=== PATIENT | male | born 1995 | race Caucasian/White ===

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

== ENCOUNTER 2017-09-30 22:24 | Observation (INO) ==
--- NOTE | 2017-09-30 22:57 | ERNOTE ---
Medical Problem HPI - Narrative Date of Service: 09/30/17 - transfer from [facility] for OD - General Chief Complaint: Drug Overdose Time Seen by Provider: 09/30/17 22:53 Source: patient Exam Limitations: no limitations - Immun/Allergies/Home Medications Immunizations: IMMUNIZATION HX Immunizations Up to Date Yes Allergies/Adverse Reactions: Allergies No Known Allergies Allergy (Verified 09/30/17 22:31) Home Medications: HOME MEDICATIONS Carisoprodol [Soma] 350 mg PO DAILY 09/30/17 [Last Taken Unknown] Meloxicam [Mobic] 15 mg PO DAILY 09/30/17 [Last Taken Unknown] Clonidine HCl [Catapres] 0.1 mg PO TID PRN #90 tab 10/01/17 [Last Taken Unknown] Naltrexone HCl [ReVia] 50 mg PO DAILY #30 tab 10/01/17 [Last Taken Unknown] Sertraline HCl [Zoloft] 50 mg PO DAILY #30 tab 10/01/17 [Last Taken Unknown] loperamide 2 mg capsule 2 mg PO QID PRN #120 cap 10/01/17 [Last Taken Unknown] - History of Present History Narrative: patient was transfer from [facility] for lack of beds,patient took OD of multiple medications, 9 Soma meloxicam benadrylopiate oxycontin and vicdin,had elevated random tylenol level ,in ED here a/o no distress denies wanted to hurt self but rather to get away from things. Date (Duration): 09/30/17 Time (Timing): 23:34 Severity: moderate Review of Systems - Review of Systems Constitutional: Present: no symptoms reported EYE: Present: no symptoms reported ENT: Present: no symptoms reported Respiratory: Present: no symptoms reported Cardiology: Present: no symptoms reported Gastrointestinal/Abdominal: Present: no symptoms reported Genitourinary: Present: no symptoms reported Neurological: Present: no symptoms reported All Other Systems: All systems neg except as marked Medical History (Last Updated 10/01/17 @ 01:46 by Ana Graf RN) ADHD Ankle fracture Arthritis of back Degenerative disk disease Depression Kidney stone Scoliosis bipolar Surgical History: Surgical History (Last Updated 09/30/17 @ 22:34 by Manasa Thao RN) History of lithotripsy Family History: Family History (Last Updated 10/01/17 @ 01:42 by Ana Graf RN) Mother Anxiety Depression Bipolar 1 disorder Social History: Preferred Language Maltese Smoking Status Current every day smoker Abuse History No History of abuse Psych History Hx of Anxiety,Hx of Depression Alcohol Use rarely Drug Use benzodiazepine,other Physical Exam - Physical Exam General Appearance: Present: wd/wn, alert, no apparent distress Head Exam: Present: normal inspection, no evidence of injury Eye Exam: Normal inspection: bilateral Ears, Nose, Throat: Present: normal ENT inspection Neck: Present: normal inspection Respiratory: Present: no respiratory distress Cardiovascular/Chest: Present: regular rate, rhythm Gastrointestinal/Abdominal: Present: normal bowel sounds, nontender, nondistended Rectal Exam: Present: nontender, normal rectal tone Back Exam: Present: normal inspection Extremity Exam: Present: normal inspection Neurological Exam: Present: alert, oriented, normal mood/affect Skin Exam: Present: normal color Lymphatic Exam: Present: no adenopathy ED Progress - Results and Orders Patient's Lab Results:: I have reviewed the patient's lab results. - Vital Signs Patient's Vital Signs:: I have reviewed the patient's vital signs. Vital Signs: Vital Signs 09/30/17 22:27 Temperature 37.0 C Pulse Rate 85 Respiratory Rate 17 Blood Pressure 119/73 O2 Sat by Pulse Oximetry 99 - Progress/Reassessment Chief Complaint: Drug Overdose Plan - Plan Plan: patient to be admitted to ICU Departure Clinical Impression: Overdose Qualifiers: Encounter type: initial encounter Injury intent: accidental or unintentional Qualified Code(s): T50.901A - Poisoning by unspecified drugs, medicaments and biological substances, accidental (unintentional), initial encounter - Departure Disposition: Still a patient Condition: Good
[2017-09-30 23:08] LABS: Hematocrit 38.1 % (42.0-52.0); Hemoglobin 12.7 gm/dL (13.5-18.0); Mean Cell Volume 90.7 fl (78-100); Mean Corpuscular Hemoglobin 30.2 pg (27-31); Mean Corpuscular Hgb Conc 33.3 g/dl (32-36); Mean Platelet Volume 9.5 fl (8-11.3); Neutrophil # 4.5 K/mm3 (1.3-6.0); Neutrophil % 54.8 % (42-75.0); Platelet Count 221 K/mm3 (150-450); Red Cell Distribution Width 12.3 % (11.5-14.0); White Blood Count 8.3 K/mm3 (4.0-10.5)
[2017-09-30 23:27] LABS: ALT 17 U/L (19-67); AST 18 U/L (0-48); Acetaminophen * 5.6 mcg/mL (10.0-30.0); Albumin * 3.6 gm/dl (3.4-5.0); Alkaline Phosphatase * 88 U/L (50-170); Anion Gap 11.7 mmol/L (6.8-13.8); Bilirubin, Total 0.3 mg/dL (0.0-1.1); Blood Urea Nitrogen 8 mg/dL (6-23); Ca. Corrected For Albumin 8.2 mg/dL (8.4-10.2); Calcium * 8.2 mg/dL (7.9-10.9); Carbon Dioxide 29.8 mmol/L (24-32.6); Chloride 107 mmol/L (97-106); Glucose * 112 mg/dL (70-110); Potassium 3.5 mmol/L (3.4-4.6); Salicylate Less than 2.8 mg/dL (2.8-20.0); Sodium 145 mmol/L (132-142); Total Protein 6.3 gm/dL (6.2-8.2); Troponin I Less than 0.017 ng/ml (0.00-0.10)
[2017-10-01 00:05] LABS: Urine Bilirubin Negative (NEGATIVE); Urine Blood 50 /ul (NEGATIVE); Urine Ketone Negative (NEGATIVE); Urine Nitrite Negative (NEGATIVE); Urine Protein Negative (NEGATIVE); Urine Specific Gravity 1.025 SP.GR. (1.005-1.030); Urine Urobilinogen Normal (NORMAL); Urine pH 6.5 pH (5.0-7.0)
[2017-10-01 00:11] LABS: Urine Appearance Clear (CLEAR); Urine Bacteria TRACE; Urine Color Yellow; Urine WBC 0-5 /hpf (0-5)
[2017-10-01 00:21] LABS: Cocaine Ur Negative (NEGATIVE); Urine Barbiturate Negative (NEGATIVE); Urine Benzodiazepines Negative (NEGATIVE); Urine PCP Negative (NEGATIVE); Urine THC Negative (NEGATIVE)
[2017-10-01 00:22] LABS: Urine Opiates Positive (NEGATIVE)
--- NOTE | 2017-10-01 01:52 | HP ---
Chief Complaint - Chief Complaint Date of Service: 10/01/17 Time of Service: 01:00 Chief Complaint: Overdose History of Present Illness: 22 years old male adm to the [facility] with reports of overdose on multiple prescription medications.He is a transfer from [facility] to [facility] ER. Per patient he was doing good for 1-2 days without using prescription medication to numb his sad feelings. Pt stated " I no longer uses vicodin for back pain, but i use it to feel ok. Today I took soma meloxicam and when I didn't feel any better I took another and another. july i took a total of maybe 9 pills. I had taken the vicodin earlier, but I have also taken Benadryl and oxycontin at different times. The soma is prescribed to me but the vicodin and oxycontin not.I have been trying on my own to quit because I know I have a problem and want some help.Whenever I stop using its feels like my body is about to fall apart, so I take the pills again". I wasn't trying to kill myself or get high, I just wanted to get away from how im feeling, maybe relax". Per aunt "later in the day, pt was picked up by a police academy instructor and brought him to his grandmother house. He was very lethargic so she took him to the ER in [place]. His issues began when he fractures his ankle and was prescribed vicodin. At 16 years old he was committed for lorazepam abuse". pt stated "he was prescribed 1 pill daily. However he was instructed by his psychiatrist to take an additional pill if his symptoms didn't improve. This continues to where he was taking lorazepam 4time or more during the day. The psychiatrist found out, he was sent to rehab in [place]. PMH significant for several accidental fractures, back pain, arthritis, kidney stones, anxiety, depression and chronic back pain. In ER salicylates < 2.8, Acetaminophen 5.6 and + opiates. EKG- NSR, pt is medically stable and appropriate to be on the med-surg. Plan of care discussed with pt and family, they verbalized understanding and agrees. Medical History (Last Updated 10/01/17 @ 01:46 by Ana Graf RN) Ankle fracture Arthritis of back Degenerative disk disease Scoliosis ADHD Depression Kidney stone bipolar Surgical History: Surgical History (Last Updated 09/30/17 @ 22:34 by Manasa Thao RN) History of lithotripsy Family History: Family History (Last Updated 10/01/17 @ 01:42 by Ana Graf RN) Mother Anxiety Depression Bipolar 1 disorder Social History: Patient Lives/Resources Home Utilized Preferred Language Yakut Do you have any gnosticism or No cultural preference? Smoking Status Current every day smoker Have you smoked in the past 12 Yes months Abuse History No History of abuse Psych History Hx of Anxiety,Hx of Depression Alcohol Use rarely Drug Use benzodiazepine,other Review Of Systems (GEN) - Review of Systems Generalized/Overall Review: Present: No Symptoms Reported EENTM: Present: No Symptoms Reported Respiratory: Present: No Symptoms Reported Cardiac: Present: No Symptoms Reported Abdominal: Present: No Symptoms Reported Genitourinary: Present: No Symptoms Reported Musculoskeletal: Present: No Symptoms Reported Neurological: Present: No Symptoms Reported Skin: Present: No Symptoms Reported Endocrine: Present: No Symptoms Reported Immunizations: IMMUNIZATION HX Immunizations Up to Date Yes Allergies/Adverse Reactions: Allergies Allergy/AdvReac Type Severity Reaction Status Date / Time No Known Allergies Allergy Verified 09/30/17 22:31 Home Medications: HOME MEDICATIONS Carisoprodol [Soma] 350 mg PO DAILY 09/30/17 [Last Taken Unknown] Meloxicam [Mobic] 15 mg PO DAILY 09/30/17 [Last Taken Unknown] Exam - Exam Vital Signs: Vital Signs - Last Taken Temp 36.9 C 10/01/17 01:17 Pulse 94 10/01/17 01:17 Resp 16 10/01/17 01:17 BP 134/74 10/01/17 01:17 Pulse Ox 98 10/01/17 01:17 Constitutional: Present: Alert, Oriented x3, Cooperative, No distress ENT Exam: Present: hearing grossly normal Eye Exam: bilateral eye: normal inspection Neck: Present: non-tender, full range of motion Back Exam: Present: normal inspection Breasts: Present: Exam deferred Respiratory: Present: chest non-tender, lungs clear, normal breath sounds, no respiratory distress Cardiovascular/Chest: Present: normal peripheral pulses, regular rate, rhythm, no chest tenderness, no edema Peripheral Pulses: dorsalis-pedis (R): 3+, dorsalis-pedis (L): 3+ Abdomen: Present: Normal bowel sounds, soft, nontender, nondistended, no rebound tenderness /Rectal: Present: Exam deferred Extremity: Present: normal range of motion, non-tender, normal inspection, no pedal edema Skin Exam: Present: normal color, warm/dry Neurologic: Present: normal mood/affect, oriented x 3 Appearance: Present: appropriate appearance, appropriate insight Eye contact: Present: cooperative, good eye contact Thoughts: Present: normal thought pattern, no apparent hallucination Diagnostic Studies: Abnormal Lab Results 09/30/17 09/30/17 09/30/17 Range/Units 23:07 23:07 23:59 RBC 4.20 L (4.7-6.0) M/mm3 Hgb 12.7 L (13.5-18.0) gm/dL Hct 38.1 L (42.0-52.0) % Eosinophils % 3.3 H (0.0-3.0) % Sodium 145 H (132-142) mmol/L Plasma Sodium 145 H (130-142) mmol/L Chloride 107 H (97-106) mmol/L Random Glucose 112 H (70-110) mg/dL Calcium Adj for Albumin 8.2 L (8.4-10.2) mg/dL ALT 17 L (19-67) U/L Urine Blood 50 H (NEGATIVE) /ul Urine RBC 10-25 H (0-5) /hpf Salicylates Less than 2.8 L (2.8-20.0) mg/dL Urine Opiates Screen (NEGATIVE) Acetaminophen 5.6 L (10.0-30.0) mcg/mL 09/30/17 Range/Units 23:59 RBC (4.7-6.0) M/mm3 Hgb (13.5-18.0) gm/dL Hct (42.0-52.0) % Eosinophils % (0.0-3.0) % Sodium (132-142) mmol/L Plasma Sodium (130-142) mmol/L Chloride (97-106) mmol/L Random Glucose (70-110) mg/dL Calcium Adj for Albumin (8.4-10.2) mg/dL ALT (19-67) U/L Urine Blood (NEGATIVE) /ul Urine RBC (0-5) /hpf Salicylates (2.8-20.0) mg/dL Urine Opiates Screen Positive H (NEGATIVE) Acetaminophen (10.0-30.0) mcg/mL Laboratory Results WBC 8.3 K/mm3 (4.0-10.5) 09/30/17 23:07 RBC 4.20 M/mm3 (4.7-6.0) L 09/30/17 23:07 Hgb 12.7 gm/dL (13.5-18.0) L 09/30/17 23:07 Hct 38.1 % (42.0-52.0) L 09/30/17 23:07 MCV 90.7 fl (78-100) 09/30/17 23:07 MCH 30.2 pg (27-31) 09/30/17 23:07 MCHC 33.3 g/dl (32-36) 09/30/17 23:07 RDW 12.3 % (11.5-14.0) 09/30/17 23:07 Plt Count 221 K/mm3 (150-450) 09/30/17 23:07 MPV 9.5 fl (8-11.3) 09/30/17 23:07 Immature Gran % (Auto) 0.20 % (0.001-0.429) 09/30/17 23:07 Immature Gran # (Auto) 0.02 K/mm3 (0.000-0.0310) 09/30/17 23:07 Neutrophils % 54.8 % (42-75.0) 09/30/17 23:07 Lymphocytes % 34.5 % (20-51) 09/30/17 23:07 Monocytes % 6.8 % (0.0-9) 09/30/17 23:07 Eosinophils % 3.3 % (0.0-3.0) H 09/30/17 23:07 Basophils % 0.4 % (0.0-1.0) 09/30/17 23:07 Nucleated RBC % 0.0 k/mm3 (0-1) 09/30/17 23:07 Neutrophils # 4.5 K/mm3 (1.3-6.0) 09/30/17 23:07 Lymphocytes # 2.86 k/mm3 (1.5-3.5) 09/30/17 23:07 Monocytes # 0.6 k/mm3 (0.0-1.0) 09/30/17 23:07 Eosinophils # 0.3 k/mm3 (0.0-0.7) 09/30/17 23:07 Absolute Basophils 0.0 k/mm3 (0.0-0.1) 09/30/17 23:07 Sodium 145 mmol/L (132-142) H 09/30/17 23:07 Plasma Sodium 145 mmol/L (130-142) H 09/30/17 23:07 Potassium 3.5 mmol/L (3.4-4.6) 09/30/17 23:07 Chloride 107 mmol/L (97-106) H 09/30/17 23:07 Carbon Dioxide 29.8 mmol/L (24-32.6) 09/30/17 23:07 Anion Gap 11.7 mmol/L (6.8-13.8) 09/30/17 23:07 BUN 8 mg/dL (6-23) 09/30/17 23:07 Creatinine 0.89 mg/dL (0.4-1.4) 09/30/17 23:07 Est GFR (Non-Af Amer) 116 mL/min (60-130) D 09/30/17 23:07 BUN/Creatinine Ratio 9.0 (9.0-21.6) 09/30/17 23:07 Random Glucose 112 mg/dL (70-110) H 09/30/17 23:07 Calcium 8.2 mg/dL (7.9-10.9) 09/30/17 23:07 Calcium Adj for Albumin 8.2 mg/dL (8.4-10.2) L 09/30/17 23:07 Total Bilirubin 0.3 mg/dL (0.0-1.1) 09/30/17 23:07 AST 18 U/L (0-48) 09/30/17 23:07 ALT 17 U/L (19-67) L 09/30/17 23:07 Alkaline Phosphatase 88 U/L (50-170) 09/30/17 23:07 Troponin I Less than 0.017 ng/ml (0.00-0.10) 09/30/17 23:07 Total Protein 6.3 gm/dL (6.2-8.2) 09/30/17 23:07 Albumin 3.6 gm/dl (3.4-5.0) 09/30/17 23:07 Urine Color Yellow 09/30/17 23:59 Urine Appearance Clear (CLEAR) 09/30/17 23:59 Urine pH 6.5 pH (5.0-7.0) 07 23:59 Ur Specific [place] 1.025 SP.GR. (1.005-1.030) 09/30/17 23:59 Urine Protein Negative mg/dL (NEGATIVE) 09/30/17 23:59 Urine Glucose (UA) Negative mg/dL (NEGATIVE) 09/30/17 23:59 Urine Ketones Negative mg/dL (NEGATIVE) 09/30/17 23:59 Urine Blood 50 /ul (NEGATIVE) H 09/30/17 23:59 Urine Nitrate Negative (NEGATIVE) 09/30/17 23:59 Urine Bilirubin Negative mg/dl (NEGATIVE) 09/30/17 23:59 Urine Urobilinogen Normal EU/dl (NORMAL) 09/30/17 23:59 Ur Leukocyte Esterase Negative /ul (NEGATIVE) 09/30/17 23:59 Urine RBC 10-25 /hpf (0-5) H 09/30/17 23:59 Urine WBC 0-5 /hpf (0-5) 07 23:59 Ur Epithelial Cells None seen /hpf (0-5) 09/30/17 23:59 Urine Bacteria Trace (NONE) 09/30/17 23:59 Urine Culture Comments No culture indicated 09/30/17 23:59 Salicylates Less than 2.8 mg/dL (2.8-20.0) L 09/30/17 23:07 Urine Opiates Screen Positive (NEGATIVE) H 09/30/17 23:59 Acetaminophen 5.6 mcg/mL (10.0-30.0) L 09/30/17 23:07 Barbiturate Screen Negative (NEGATIVE) 09/30/17 23:59 Ur Phencyclidine Scrn Negative (NEGATIVE) 09/30/17 23:59 Urine Amphetamine Negative (NEGATIVE) 09/30/17 23:59 U Benzodiazepines Scrn Negative (NEGATIVE) 09/30/17 23:59 Urine Cocaine Screen Negative (NEGATIVE) 09/30/17 23:59 Urine Marijuana (THC) Negative (NEGATIVE) 09/30/17 23:59 Assessment/Plan - Assessment/Plan (1) Overdose Assessment: In ER salicylates < 2.8, Acetaminophen 5.6 and + opiates. EKG- NSR Telemetry seizure precaution. Consult Vielka Doherty for psy eval and treatment Recommendation for Alcohol and drug dependency services monique Problem: Acute Qualifiers: Encounter type: initial encounter
--- NOTE | 2017-10-01 11:15 | CONS ---
[facility] - General Date of Service: 10/01/17 Source: patient, RN/MD, RN notes reviewed Exam Limitations: no limitations - History of Present Illness Timing/Duration: getting worse Severity: moderate Associated Symptoms: malaise, nausea Allergies/Adverse Reactions: Allergies No Known Allergies Allergy (Verified 09/30/17 22:31) Home Medications: Home Medications Medication Instructions Recorded Last Taken Carisoprodol [Soma] 350 mg PO DAILY 09/30/17 Unknown Meloxicam [Mobic] 15 mg PO DAILY 09/30/17 Unknown clonidine HCl 0.1 mg tablet 0.1 mg PO TID PRN #90 tab 10/01/17 Unknown loperamide 2 mg capsule 2 mg PO QID PRN #120 cap 10/01/17 Unknown naltrexone 50 mg tablet 50 mg PO DAILY #30 tab 10/01/17 Unknown sertraline 50 mg tablet 50 mg PO DAILY #30 tab 10/01/17 Unknown Procedures Application of splint (04/18/11) Open reduction of fracture with internal fixation, tibia and fibula (04/20/11) Review of Systems - Review of Systems Generalized/Overall Review: Present: Weakness, Chills, Malaise Abdominal: Present: Nausea, Diarrhea Neurological: Present: Anxiety, Depressed Physical Examination - Exam Narrative: Visit lasts approx. 20 minutes. Patient admits to using opiates recreationally several years ago. This use increased to daily. Has tried to stop using on his own but experiences withdrawal symptoms and intense cravings so uses to avoid feeling terrible from the withdrawal. States that he knows that his opiate use is a problem and voices a desire to stop using. States that mood is anxious and depressed. Is tried of being dependent on opiates. Took an overdose fo medications to stop withdrawal symptoms, denies that this was a suicide attempt. Discussed treatment available for opiate addiction. Discussed possibility of managing medication on an outpatient basis here vs. referral to a suboxone provider. Will start on Naltrexone, Clonidine, Loperamide and Sertraline. Discussed R/B/SE of medications. Written instructions provided. Number given for ADDS, strongly recommend substance abuse counseling. Case management will attempt to refer to a Suboxone provider in [facility]. Patient states that he has a good support system. Has follow up appointment scheduled for 10/23/17. Patient is cleared by psychiatry for discharge. Vital Signs: Vital Signs - Last Taken Temp 37.0 C 10/01/17 08:25 Pulse 54 L 10/01/17 08:25 Resp 16 10/01/17 08:25 BP 120/83 10/01/17 08:25 Pulse Ox 99 10/01/17 08:25 O2 Oxygen Delivery Method Room Air Constitutional: Present: Alert, Oriented x3, Cooperative Neurologic: Present: depressed affect Appearance: Present: appropriate appearance, appropriate insight Eye contact: Present: cooperative, good eye contact Thoughts: Present: normal thought pattern, no apparent hallucination - Results and Findings: Lab/Microbiology results last 24 hrs: Abnormal/Pending Laboratory Last 24 HRS 09/30/17 09/30/17 09/30/17 23:59 23:59 23:07 RBC Hgb Hct Eosinophils % Sodium 145 H Plasma Sodium 145 H Chloride 107 H Random Glucose 112 H Calcium Adj for Albumin 8.2 L ALT 17 L Urine Blood 50 H Urine RBC 10-25 H Salicylates Less than 2.8 L Urine Opiates Screen Positive H Acetaminophen 5.6 L 09/30/17 23:07 RBC 4.20 L Hgb 12.7 L Hct 38.1 L Eosinophils % 3.3 H Sodium Plasma Sodium Chloride Random Glucose Calcium Adj for Albumin ALT Urine Blood Urine RBC Salicylates Urine Opiates Screen Acetaminophen - Assessments/Findings (1) Overdose Problem: Acute Qualifiers: Encounter type: initial encounter Injury intent: accidental or unintentional Qualified Code(s): T50.901A - Poisoning by unspecified drugs, medicaments and biological substances, accidental (unintentional), initial encounter (2) Opiate addiction Problem: Acute Qualifiers: Complication of substance-induced condition: uncomplicated (3) Major depression Problem: Acute Qualifiers: Major depression episode severity: moderate Qualified Code(s): F33.1 - Major depressive disorder, recurrent, moderate
--- NOTE | 2017-10-01 11:45 | DS ---
(1) Major depression Problem: Chronic Qualifiers: Major depression recurrence: recurrent Active/Remission status: currently active Major depression episode severity: moderate Qualified Code(s): F33.1 - Major depressive disorder, recurrent, moderate (2) Opiate addiction Problem: Chronic Qualifiers: Complication of substance-induced condition: uncomplicated (3) Overdose Problem: Acute Qualifiers: Encounter type: initial encounter Injury intent: accidental or unintentional Qualified Code(s): T50.901A - Poisoning by unspecified drugs, medicaments and biological substances, accidental (unintentional), initial encounter Description of Stay: jo Koch, is a 22 years old male adm itted on 10/01/2017 with reports of overdose on multiple prescription medications.He was a transfer from [facility] to [facility] ER. Per patient he was doing good for 1-2 days without using prescription medication to numb his sad feelings. Pt stated " I no longer uses vicodin for back pain, but i use it to feel ok. Today I took soma meloxicam and when I didn't feel any better I took another and another. may i took a total of maybe 9 pills. I had taken the vicodin earlier, but I have also taken Benadryl and oxycontin at different times. The soma is prescribed to me but the vicodin and oxycontin not.I have been trying on my own to quit because I know I have a problem and want some help.Whenever I stop using its feels like my body is about to fall apart, so I take the pills again". I wasn't trying to kill myself or get high, I just wanted to get away from how im feeling, maybe relax". Per aunt "later in the day, pt was picked up by a police matron and brought him to his grandmother house. He was very lethargic so she took him to the ER in [place]. His issues began when he fractures his ankle and was prescribed vicodin. At 16 years old he was committed for lorazepam abuse". pt stated "he was prescribed 1 pill daily. However he was instructed by his psychiatrist to take an additional pill if his symptoms didn't improve. This continues to where he was taking lorazepam 4time or more during the day. The psychiatrist found out, he was sent to rehab in [place]. PMH significant for several accidental fractures, back pain, arthritis, kidney stones, anxiety, depression and chronic back pain. In ER salicylates < 2.8, Acetaminophen 5.6 and + opiates. EKG- NSR, pt was medically stable and was denying trying to kill himself and he was deemed appropriate to be on the med-surg instead of one on one in the [facility]. Vielka Benitez saw him and cleared him for discharge. Procedures Performed: none Results and Findings: Lab Pending Results 09/30/17 09/30/17 09/30/17 23:07 23:07 23:59 WBC 8.3 RBC 4.20 L Hgb 12.7 L Hct 38.1 L MCV 90.7 MCH 30.2 MCHC 33.3 RDW 12.3 Plt Count 221 MPV 9.5 Immature Gran % (Auto) 0.20 Immature Gran # (Auto) 0.02 Neutrophils % 54.8 Lymphocytes % 34.5 Monocytes % 6.8 Eosinophils % 3.3 H Basophils % 0.4 Nucleated RBC % 0.0 Neutrophils # 4.5 Lymphocytes # 2.86 Monocytes # 0.6 Eosinophils # 0.3 Absolute Basophils 0.0 Sodium 145 H Plasma Sodium 145 H Potassium 3.5 Chloride 107 H Carbon Dioxide 29.8 Anion Gap 11.7 BUN 8 Creatinine 0.89 Est GFR (Non-Af Amer) 116 D BUN/Creatinine Ratio 9.0 Random Glucose 112 H Calcium 8.2 Calcium Adj for Albumin 8.2 L Total Bilirubin 0.3 AST 18 ALT 17 L Alkaline Phosphatase 88 Troponin I Less than 0.017 Total Protein 6.3 Albumin 3.6 Urine Color Yellow Urine Appearance Clear Urine pH 6.5 Ur Specific [place] 1.025 Urine Protein Negative Urine Glucose (UA) Negative Urine Ketones Negative Urine Blood 50 H Urine Nitrate Negative Urine Bilirubin Negative Urine Urobilinogen Normal Ur Leukocyte Esterase Negative Urine RBC 10-25 H Urine WBC 0-5 Ur Epithelial Cells None seen Urine Bacteria Trace Urine Culture Comments No culture indicated Salicylates Less than 2.8 L Urine Opiates Screen Acetaminophen 5.6 L Barbiturate Screen Ur Phencyclidine Scrn Urine Amphetamine U Benzodiazepines Scrn Urine Cocaine Screen Urine Marijuana (THC) 09/30/17 23:59 WBC RBC Hgb Hct MCV MCH MCHC RDW Plt Count MPV Immature Gran % (Auto) Immature Gran # (Auto) Neutrophils % Lymphocytes % Monocytes % Eosinophils % Basophils % Nucleated RBC % Neutrophils # Lymphocytes # Monocytes # Eosinophils # Absolute Basophils Sodium Plasma Sodium Potassium Chloride Carbon Dioxide Anion Gap BUN Creatinine Est GFR (Non-Af Amer) BUN/Creatinine Ratio Random Glucose Calcium Calcium Adj for Albumin Total Bilirubin AST ALT Alkaline Phosphatase Troponin I Total Protein Albumin Urine Color Urine Appearance Urine pH Ur Specific [place] Urine Protein Urine Glucose (UA) Urine Ketones Urine Blood Urine Nitrate Urine Bilirubin Urine Urobilinogen Ur Leukocyte Esterase Urine RBC Urine WBC Ur Epithelial Cells Urine Bacteria Urine Culture Comments Salicylates Urine Opiates Screen Positive H Acetaminophen Barbiturate Screen Negative Ur Phencyclidine Scrn Negative Urine Amphetamine Negative U Benzodiazepines Scrn Negative Urine Cocaine Screen Negative Urine Marijuana (THC) Negative Discharge Location: Home Disposition: Home self-care Condition: Good Discharge Activity: Activity as tolerated Discharge Diet: General/regular food Additional Patient Instructions (free text): Keep your follow up appointment with Vielka. Staff from [facility] in [place] will contact you with your appointment. Prescriptions (Any new or edited meds): Clonidine HCl [Catapres] 0.1 mg PO TID PRN #90 tab PRN Reason: Anxiety or tremors Naltrexone HCl [ReVia] 50 mg PO DAILY #30 tab Sertraline HCl [Zoloft] 50 mg PO DAILY #30 tab Complete Home Medications List: Complete Home Medication List: Carisoprodol [Soma] 350 mg PO DAILY 09/30/17 Meloxicam [Mobic] 15 mg PO DAILY 09/30/17 Clonidine HCl [Catapres] 0.1 mg PO TID PRN #90 tab 10/01/17 Naltrexone HCl [ReVia] 50 mg PO DAILY #30 tab 10/01/17 Sertraline HCl [Zoloft] 50 mg PO DAILY #30 tab 10/01/17 loperamide 2 mg capsule 2 mg PO QID PRN #120 cap 10/01/17
[2017-10-01 13:11] VITALS: BP 129/82
== END 2017-10-01 13:00 | disposition home or self-care (01) ==
LOC: ER 22:24 → INTOOBSV 10-01 00:35 → SCU 10-01 00:35 → MS 10-01 01:03
PROVIDERS: ADMIT Nurse Practitioner; ATTEND Internal Medicine
CPT/HCPCS: 36415; 80053; 80307; 80329; 81001; 84484; 85025; 99284; G0378; G0479; G0480